=== PATIENT | male | born 1965 | race Caucasian/White ===

== ENCOUNTER 2019-01-20 06:23 | Day surgery (SDC) | payer OTHER ==
--- NOTE | 2019-01-16 12:50 | RAD REPORT ---
EXAM DESCRIPTION: RAD - Chest Pa And Lat (2 Views) - 01/16/2019 12:43 pm CLINICAL HISTORY: left heart cath Chest pain. COMPARISON: Chest Single View dated 07/15/2016; CHEST SINGLE VIEW dated 05/03/2015; CHEST SINGLE VIEW dated 04/22/2015; CHEST SINGLE VIEW dated 01/05/2012 FINDINGS: The lungs are clear. The heart is normal in size. No displaced fractures. Cervical spine h ardware plate. IMPRESSION: No acute or concerning finding suspected.
[2019-01-16 13:15] LABS: BUN Blood Urea Nitrogen 19 mg/dL (7-18); Bicarbonate 26 mmol/L (21-32); Glucose Level 119 mg/dL (74-106); Potassium 3.9 mmol/L (3.5-5.1); Sodium Level 140 mmol/L (136-145)
[2019-01-16 13:25] LABS: Protime INR 0.99
[2019-01-16 14:12] LABS: Absolute Lymphocytes (CBC) 2.5 K/uL (0.7-4.9); Basophils % 0.2 % (0-1.3); Hematocrit 39.9 % (39.6-49.0); Lymphocytes % 27.2 % (15.3-44.8); RBC Red Blood Cell Count 4.28 M/uL (4.33-5.43)
[2019-01-20] MEDS ORDERED: LIDOCAINE 1% MPF 30 ML VIAL ONE (06:35)
[2019-01-20] MEDS ORDERED: HEPA 1000U/500MLS 1,000 UNIT/500 ML BAG IV ONE (06:35)
[2019-01-20] MEDS ORDERED: NA CHLORIDE 0.9% 500 ML ONE (06:55)
[2019-01-20] MEDS ORDERED: MIDAZOLAM HCL 2 MG/2 ML INJ ONE (07:22)
[2019-01-20] MEDS ORDERED: ATROPINE SULF 1 MG/10 ML SYR IV ONE (07:22)
[2019-01-20] MEDS ORDERED: NA CHLORIDE 0.9% 0 ML ONE (07:22)
[2019-01-20] MEDS ORDERED: FENTANYL CITR 100 MCG/2 ML ONE (07:22)
[2019-01-20 09:37] VITALS: BP 118/69; TEMP 98.6; O2SAT 96
--- NOTE | 2019-01-20 19:25 | OP ---
Surgeon: Tadeo Quesada MD Insolvency Practitioner: Katie Arreola. The patient will be going home today. He will see me in the office in 2 weeks. I am going to have h im increase his Zocor from 40 mg daily to 80 mg daily. Reason For Admission: Left heart catheterization and selective coronary arteriogram. Indication: Chest pain, positive stress test, history of coronary artery disease and stents. History Of Present Illness: Mr. Kurtz is 53-year-old, has a history of CAD, status post RCA stent, po sitive stress test, admitted as an outpatient, prepped and draped in the routine sterile fashion, giv en Versed and fentanyl for sedation. A 6-[place] sheath introduced in the right common femoral artery successfully. Angiography there was normal. Angio-Seal was used to close the case. A 6-[place] kins catheter left and right were used selectively in the left main and right main respectively. He had a normal LAD. He had a 70% diagonal lesion from the ostium to the mid diagonal. A small diagona l in general. Circumflex was normal, but was not dominant. The RCA was very large dominant vessel w ith a patent proximal RCA stent. There were no complications. Blood Loss: 5 cc. Postoperative Diagnosis: Moderate coronary artery disease. Plan: Plan is for medical therapy. Total conscious sedation was 30 minutes. MACKENZIE/BLAIR Voice ID: [id number] Report ID: [id number]
== END 2019-01-20 10:30 | disposition home or self-care (01) ==
LOC: CCL 06:23
DX: I25.110 Atherosclerotic heart disease of native coronary artery with unstable angina pectoris (principal); I10 Essential (primary) hypertension; E78.5 Hyperlipidemia, unspecified; F17.210 Nicotine dependence, cigarettes, uncomplicated; Z95.5 Presence of coronary angioplasty implant and graft
CPT/HCPCS: 85025; 80048; 36415; 85610; 85730; 71046; 93454; C1893; C1760; J2250; J3010; J7040; J0583

== ENCOUNTER 2023-05-13 07:00 | Day surgery (SDC) | payer BC, OTHER ==
--- NOTE | 2023-05-10 09:50 | RAD REPORT ---
EXAM DESCRIPTION: RAD - Chest Pa And Lat (2 Views) - 05/10/2023 9:45 am CLINICAL HISTORY: Pre op pending heart catheterization Chest pain. COMPARISON: Chest Pa And Lat (2 Views) dated 01/16/2019; Chest Single View dated 07/15/2016; CHEST SIN GLE VIEW dated 05/03/2015; CHEST SINGLE VIEW dated 04/22/2015 TECHNIQUE: PA and lateral views of the chest were obtained. FINDINGS: The lungs are hyperexpanded compatible with COPD. The heart is upper limit of normal in si ze. No fracture or aggressive bony process. Cervical spine hardware plate. IMPRESSION: COPD without acute process identified. The USPSTF recommends annual screening for lung cancer with low-dose CT (LDCT) in adults aged 50 to 8 0 years who have a 20 pack-year smoking history and currently smoke or have quit within the past 15 y ears.
[2023-05-10 09:54] LABS: Absolute Lymphocytes (CBC) 1.9 K/uL (0.7-4.9); Hematocrit 42.5 % (39.6-49.0); Lymphocytes % 22.1 % (15.3-44.8); MCV 92.8 fL (80-100); MPV 7.9 fL (7.6-11.3); Platelets 246 thou/uL (152-406); RBC Red Blood Cell Count 4.59 M/uL (4.33-5.43)
[2023-05-10 09:57] LABS: Protime INR 0.97
[2023-05-10 10:02] LABS: Potassium 3.8 mEq/L (3.5-5.1)
[2023-05-13] MEDS ORDERED: NA CHLORIDE 0.9% 500 ML ONE (07:18)
[2023-05-13] MEDS ORDERED: LIDOCAINE 1% 20 ML MDV ONE (07:25)
[2023-05-13] MEDS ORDERED: HEPA 1000U/500MLS 2,000 UNIT/1,000 ML BAG IV ONE (07:25)
[2023-05-13] MEDS ORDERED: ATROPINE SULF 1 MG/10 ML SYR IV ONE (07:40)
[2023-05-13] MEDS ORDERED: VERAPAMIL HCL 10 MG/4 ML VIAL IV ONE (07:40)
[2023-05-13] MEDS ORDERED: MIDAZOLAM HCL 2 MG/2 ML INJ ONE (07:40)
[2023-05-13] MEDS ORDERED: FENTANYL CITR 100 MCG/2 ML ONE (07:40)
[2023-05-13] MEDS ORDERED: ASPIRIN 325 MG TAB ONE (07:41)
[2023-05-13] MEDS ORDERED: HEPARIN 10,000 UNIT/10 ML VIAL IV ONE (07:41)
[2023-05-13] MEDS ORDERED: CLOPIDOGREL 75 MG TABLET ONE (07:41)
[2023-05-13] MEDS ORDERED: TICAGRELOR 90 MG TABLET PO ONE (07:41)
[2023-05-13] MEDS ORDERED: HEPARIN 5000 UNIT/ML 1 ML VIAL ONE (07:41)
[2023-05-13] MEDS ORDERED: NITROGLYCERIN/D5W 25 MG/250 ML BTL IV ONE (07:42)
[2023-05-13 07:58] VITALS: TEMP 97.5
[2023-05-13 11:46] VITALS: BP 119/83; O2SAT 99
--- NOTE | 2023-05-13 14:40 | EKG ---
Test Date: 2023-05-10 Test Time: 10:29:06 Repairer: TALON MEASUREMENT RESULTS: Intervals: Rate: 58 HI: 200 QRSD: 114 QT: 392 QTc: 384 [place]: P: 48 HI: 200 QRS: 11 T: 16 INTERPRETIVE STATEMENTS: Sinus bradycardia Minimal voltage criteria for LVH, may be normal variant Borderline ECG Compared to ECG 07/15/2016 10:50:58 No significant changes Electronically Signed On 05-13-23 14:30:45 CALL BOX WIRER by Vernon Smart
== END 2023-05-13 12:21 | disposition home or self-care (01) ==
LOC: CCL 07:00
PROVIDERS: ATTEND Internal Medicine
DX: I25.10 Atherosclerotic heart disease of native coronary artery without angina pectoris (principal); I10 Essential (primary) hypertension; E78.5 Hyperlipidemia, unspecified; Z95.5 Presence of coronary angioplasty implant and graft; Z87.891 Personal history of nicotine dependence; Z79.82 Long term (current) use of aspirin; Z79.899 Other long term (current) drug therapy
CPT/HCPCS: 93005; 85025; 80048; 36415; 85610; 85347; 85730; 71046; 92928; 93458; 76937; C1893; Q9967; C1725; J1644; J2001; J2250; J3010; J7040; 99152; 99153; J0461